=== PATIENT | male | born 2005 | race Caucasian/White ===

== ENCOUNTER 2024-01-26 10:14 | Outpatient (AMB) | payer OTHER, SELFPAY ==
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
[2024-01-26 10:37] VITALS: BMI 22.1
== END 2024-01-26 12:10 | disposition home or self-care (01) ==
LOC: HO.HOS 10:14
PROVIDERS: PCP Internal Medicine; Visit Provider Orthopaedic Surgery
DX: S83.004A Unspecified dislocation of right patella, initial encounter (principal); M25.461 Effusion, right knee; Z04.3 Encounter for examination and observation following other accident
CPT/HCPCS: 99204

== ENCOUNTER → 2024-01-26 10:14 | Outpatient (BNVA) | payer OTHER, SELFPAY | PROVIDERS: PCP Internal Medicine; Visit Provider Orthopaedic Surgery ==

== ENCOUNTER 2024-10-10 08:02 | Outpatient (REF) | payer OTHER, SELFPAY ==
--- NOTE | ~2024-10-10 | MR_ITS ---
EXAMINATION: MR KNEE WITHOUT CONTRAST, RIGHT CLINICAL INFORMATION: Right knee pain and instability. , History of MCL repair. COMPARISON: Prior available. TECHNIQUE: MRI of the right knee without contrast was performed using routine sequences on a 1.5 Kaela Siemens high-field scanner. FINDINGS: MENISCI: Medial Meniscus: Intact and normal in signal. Lateral Meniscus: Intact and normal in signal. LIGAMENTS: Anterior Cruciate: Intact and normal in signal. Posterior Cruciate: Intact and normal in signal. Medial Collateral: There appears to have been prior MCL repair with a screw tract seen in the most superior medial femoral condyle . There also appears to been a medial patellar retinacular repair with a stabilization screw in the medial patellar pole. The MCL appears intact and normal in signal. Lateral Collateral Complex: The biceps femoris tendon, conjoined tendon, fibular collateral ligament, and popliteus tendon are all appear intact. There is high signal within the attachment zone of the fibular collateral ligament,, likely from old injury or intrasubstance degeneration. EXTENSOR MECHANISM: Intact and normal in signal. The prefemoral fat pad, and suprapatellar fat pad appear normal in signal. Within the superolateral aspect of Hoffa's fat pad, there is some high signal/edema (series 8, image 16) which could represent mild fat pad impingement syndrome. PATELLAR RETINACULUM: There has been repair of the medial patellar retinaculum, with several surgical ale present, and a surgical anchor in the medial mid waist of the patella. The repair appears intact. The lateral patellar retinaculum appears intact and normal in signal. BONE: There is subchondral bone plate edema within the inferior patellar pole as detailed below. There is otherwise no abnormal bone marrow signal or edema. JOINTS/CARTILAGE: Medial Compartment: Normal. No cartilaginous thinning or abnormalities. Nonweightbearing femoral cartilage is intact. Lateral Compartment: Normal. No cartilaginous thinning or abnormalities. Nonweightbearing femoral cartilage is intact. Patellofemoral Compartment: There is a full-thickness cartilage defect in the central slightly lateral inferior patella measuring approximately 7 mm in transverse, by 11 mm in craniocaudad dimension. (Series 8, image 11; series 10, image 22). There is underlying subchondral bone plate edema. The femoral trochlear cartilage is intact without defect. JOINT FLUID AND BURSAE: There is normal joint fluid without effusion. There are no bursal abnormalities identified. OTHER: The popliteal fossa appears normal. There is no Terrell's cyst. The imaged musculature is normal in signal. The syndesmotic ligaments appear intact. The arcuate ligament appears intact. MR/MR knee RT wo con IMPRESSION: 1. There appears to have been prior repair of the MCL and medial patellar retinaculum. The repaired structures appear intact without definite re-injury. 2. The menisci, cruciate ligaments, and lateral collateral complex appear intact. 3. There is a focus of full-thickness cartilage loss involving the inferior and slightly lateral patella with subchondral bone plate edema present. The trochlear cartilage is intact. 4. There is a small amount of edema within the superolateral aspect of Hoffa's fat pad, query mild fat pad impingement. Electronically signed by: Martin Rao MD 10/10/2024 09:40 AM EDT
--- OUTSIDE RECORDS SUMMARY | 2024-10-10 08:07 | XMS_ITS | Clinical Summary ---
Author Organization [facility] ity Address [address] [place] [address] Care Team Providers Care Electrical Designer Drafter Name Role Phone Unavailable Primary Care Provider Unavailabl e Social History Tobacco Use Types Packs/Day Years Used Date Smoking Tobacco: Never Assessed Sex and Gender Information Value Date Recorded Sex Assigned at Not on file Legal Sex Male 3:33 PM EST Gender Identity Not on file Sexual Orientation Not on file Plan of Treatment Health Maintenance Due Date Last Done Comments HPV Vaccines (1 - Male 3-dos e series) 2018 Meningococcal B Vaccine (1 o f 2 - Standard) 2019 DTaP,Tdap,and Td Vaccines (1 - Tdap) 2022 Hepatitis B Vaccines (1 of 3 - 19+ 3-dose series) 2022 Annual Well Child Visit (3-2 1 years old) 12/27/2023 Depression Screening 12/27/2023 HIV Screening 12/27/2023 Hepatitis C Screening 12/27/2023 Social Influencers of Health Screening 12/27/2023 COVID-19 Vaccine (1 - 2023-2 5 season) 2024 Influenza Vaccine (Season Ended) 2025 HIB Vaccines Aged Out No longer eligi ble based on patient's age to complete this topic Hepatitis A Vaccines Aged Out No long er eligible based on patient's age to complete this topic IPV Vaccines Aged Out No longer eligi ble based on patient's age to complete this topic MMR Vaccines Aged Out No longer eligi ble based on patient's age to complete this topic Meningococcal ACWY Vaccine Aged Out N o longer eligible based on patient's age to complete this topic Pneumococcal Vaccine: Pediat rics (0 to 5 Years) and At-Risk Patients (6 to 64 Years) Aged Out No longer eligible b ased on patient's age to complete this topic RSV Immunization Patients Un bobbi 20 months Aged Out No longer eligible b ased on patient's age to complete this topic Varicella Vaccines Aged Out No longer eligible based on patient's age to complete this topic
== END 2024-10-10 08:03 | disposition home or self-care (01) ==
LOC: HO.MRI 08:02
PROVIDERS: PCP Internal Medicine; Visit Provider Orthopaedic Surgery
DX: M25.461 Effusion, right knee (principal); S83.004D Unspecified dislocation of right patella, subsequent encounter
CPT/HCPCS: 73721

== ENCOUNTER → 2024-10-10 08:02 | Outpatient (BNV) | payer OTHER, SELFPAY | PROVIDERS: PCP Internal Medicine; Visit Provider Radiology Diagnostic Radiology | DX: M25.561 Pain in right knee (principal) | CPT/HCPCS: 73721 ==

== ENCOUNTER 2024-11-22 09:14 | Outpatient (AMB) | payer OTHER, SELFPAY ==
[2024-11-22 09:15] VITALS: BMI 22.1
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
--- OUTSIDE RECORDS SUMMARY | 2024-11-22 10:06 | XMS_ITS | Clinical Summary ---
Author Organization [facility] ity Address [address] [place] [address] Care Team Providers Care Pick Up Driver Name Role Phone Unavailable Primary Care Provider [...]
== END 2024-11-22 09:34 | disposition home or self-care (01) ==
LOC: HO.HOS 09:14
PROVIDERS: PCP Internal Medicine; Visit Provider Orthopaedic Surgery
DX: S83.006A Unspecified dislocation of unspecified patella, initial encounter (principal); M22.40 Chondromalacia patellae, unspecified knee
CPT/HCPCS: 99213